=== PATIENT | female | born 2000 | race Caucasian/White ===

== ENCOUNTER 2021-10-06 23:07 | Emergency (ER) | payer MEDICAID | END 2021-10-06 23:45 | disposition left against medical advice (07) | LOC: CC.ED 23:07 | DX: Z53.21 Procedure and treatment not carried out due to patient leaving prior to being seen by health care provider (principal) ==

== ENCOUNTER 2022-03-25 17:30 | Emergency (ER) | payer OTHER, MEDICAID | END 2022-03-25 19:08 | disposition home or self-care (01) | LOC: CC.ED 17:30 | DX: L95.9 Vasculitis limited to the skin, unspecified (principal); S40.022A Contusion of left upper arm, initial encounter; Z79.899 Other long term (current) drug therapy | CPT/HCPCS: 36415; 85025; 99283 ==